=== PATIENT | male | born 1995 | race African-American/Black ===

== ENCOUNTER 2019-03-08 13:04 | Emergency (ER) | payer MEDICAID ==
[~2019-03-08] VITALS: Ht 182.9 cm; Wt 82.0 kg
[2019-03-08] MEDS ORDERED: IBUPROFEN 400MG TABLET PO ONE (15:15)
[2019-03-08] MEDS ORDERED: AMOXICILLIN/POTASSIUM CLAVULANATE 875/125MG TAB PO ONE (15:15)
[2019-03-08 15:28] VITALS: BP 128/76
[2019-03-08] MEDS ORDERED: BACITRACIN ZINC OINT UDPKT TOP ONE (15:30)
[2019-03-08] MEDS ORDERED: LIDOCAINE HCL/PF 1% 10 MG/ML 5ML VIAL IJ ONE (15:30)
== END 2019-03-08 15:29 | disposition home or self-care (01) ==
LOC: ER 13:04
DX: L03.011 Cellulitis of right finger (principal)
CPT/HCPCS: 99283